=== PATIENT | female | born 1965 | race Caucasian/White ===

== ENCOUNTER → 2017-03-16 | Day surgery (SDC) | payer BC ==
[2017-03-02 11:05] VITALS: Ht 165.1 cm; Wt 77.3 kg
[~2017-03-16] VITALS: Ht 165.1 cm; Wt 77.3 kg
[~2017-03-16] MED LIST: CYCL10TA6 PO; ESCI1TAB10 PO; LEVO125T5 PO; LIDOCAINE HCL 2% 2 ML VIAL (20MG/ML) ONE; LOSA1TAB38 PO; MEDR10TA PO; PRLSR20 PO; PROPOFOL IV EMULSION 10 MG/ML 20 ML VIAL IV ONE
--- NOTE | 2017-03-16 11:12 | Endo History and Physical ---
History & Physical Date of Service: Mar 16, 2017. Chief Complaint: screening Referring Physician: Dr. Rober Esparza History of Present Illness 51 yo CF who presents for screening colonoscopy. Past Surgical History Hx Cardiac Surgery: No Hx Internal Defibrillator: No Hx Pacemaker: No Hx Abdominal Surgery: Yes (TUBAL LIGATION, D&C X 2) Hx of Implantable Prosthesis: No Hx Post-Op Nausea and Vomiting: No Hx Cancer Surgery: No Hx Thoracic Surgery: No Hx Orthopedic: No Hx Urinary Tract Surgery: No Family History None Social History Smoking Status: Former Smoker Hx Substance Use: No Hx Alcohol Use: Yes (OCCASIONALLY) Allergies Coded Allergies: Penicillins (Verified Allergy, Mild, RASH, 03/16/17) Latex (Verified Allergy, Unknown, SKIN IRRITATION AND ITCHING, 03/02/17) Current Medications Reported Home Medications Medications Dose Route/Sig Max Daily Dose Days Date Category Dose Instructions Flexeril (Cyclobenzaprine Hcl) 10 Mg Tab 10 Mg PO TID PRN 03/02/17 Reported Provera (Medroxyprogesterone Acetate) 10 Mg Tab 10 Mg PO UD 03/02/17 Reported TAKES 1 TAB DAYS 16-28 PRN Prilosec (Omeprazole) 20 Mg Capcr 20 Mg PO QAM 03/02/17 Reported Lexapro (Escitalopram Oxalate) 20 Mg Tab 20 Mg PO QAM 03/02/17 Reported Cozaar (Losartan Potassium) 100 Mg Tab 100 Mg PO QAM 03/02/17 Reported Levothyroxine Sodium 125 Mcg Tab 1 Tab PO QAM 90 03/02/17 Reported Vital Signs Weight (Kilograms): 77.27 Height (Feet): 5 Height (Inches): 5 Date Time Temp Pulse Resp B/P (MAP) Pulse Ox O2 Delivery O2 Flow Rate FiO2 03/16/17 10:19 36.8 86 20 152/112 (125) 95 Room Air Physical Exam General Appearance: WD/WN, no apparent distress Respiratory/Chest: Auscultation: breath sounds normal Cardiovascular: Heart Auscultation: RRR Abdomen: Bowel Sounds: normal Inspection & Palpation: soft, non-distended, no tenderness, guarding & rebound Assessment and Plan Assessment: 51 yo CF who presents for screening colonoscopy. Plan: Proceed with colonoscopy.
--- NOTE | 2017-03-16 11:33 | Discharge Instructions ---
Endoscopy Patient Instructions Date / Procedure(s) Performed Mar 16, 2017. Colonoscopy Allergy Information Coded Allergies: Penicillins (Verified Allergy, Mild, RASH, 03/16/17) Latex (Verified Allergy, Unknown, SKIN IRRITATION AND ITCHING, 03/02/17) Discharge Date / Findings Mar 16, 2017. Internal hemorrhoids Medication Instructions OK to resume all medications today as prescribed Medications Dose Route/Sig Max Daily Dose Days Date Category Dose Instructions Flexeril (Cyclobenzaprine Hcl) 10 Mg Tab 10 Mg PO TID PRN 03/02/17 Reported Provera (Medroxyprogesterone Acetate) 10 Mg Tab 10 Mg PO UD 03/02/17 Reported TAKES 1 TAB DAYS 16-28 PRN Prilosec (Omeprazole) 20 Mg Capcr 20 Mg PO QAM 03/02/17 Reported Lexapro (Escitalopram Oxalate) 20 Mg Tab 20 Mg PO QAM 03/02/17 Reported Cozaar (Losartan Potassium) 100 Mg Tab 100 Mg PO QAM 03/02/17 Reported Levothyroxine Sodium 125 Mcg Tab 1 Tab PO QAM 90 03/02/17 Reported Provider Instructions Activity Restrictions - No exercising or heavy lifting for 24 hours. - Do not drink alcohol the day of the procedure. - Do not drive a car or operate machinery until the day after the procedure. - Do not make any important decisions or sign important papers in 24 hours after the procedure. Following Day: - Return to full activity which may include returning to work/school. Diet Start your diet with liquids and light foods (jello, soup, juice, toast). Then eat your usual diet if not nauseated. Treatment For Common After Affects For mild abdominal pain, bloating, or excessive gas: - Rest - Eat lightly - Lie on right side Follow-Up Information Follow-up with Dr. Rober Esparza as scheduled Anesthesia Information What You Should Know You have had a procedure that required some medicine to reduce anxiety and discomfort. This treatment is called moderate sedation. After receiving the treatment, you may be sleepy, but you will be able to breathe on your own. The effects of the treatment may last for several hours. Follow these instructions along with Activity/Diet recommendations noted above: * Do NOT do anything where dizziness or clumsiness would be dangerous. * Rest quietly at home today, then you can be up and about tomorrow. * Have a responsible person stay with you the rest of today. * You may have had an I.V. today. If so, you may take the dressing off later today. Recommendations Call your doctor if: * Trouble breathing * Continuous vomiting for more than 24 hours * Temperature above 101 degrees * Severe abdominal pain or bloating * Pain not relieved by pain medicine ordered * There is increased drainage or redness from any incision * A large amount of rectal bleeding greater than 2-3 tablespoons. (If you had a polyp/s removed or have hemorrhoids, a small amount of blood - from the rectum is to be expected.) * You have any unanswered questions or concerns. IN THE EVENT OF A SERIOUS EMERGENCY, GO TO THE NEAREST EMERGENCY ROOM Your discharge instructions were prepared by provider Abram Vásquez. Patient Instructions Signature Page Ev Mckeon Patient (or Guardian) Signature/Date: I have read and understand the instructions given to me by my caregivers. Caregiver/RN/Doctor Signature/Date: The above-named patient and/or guardian has received patient instructions on this date. + Original Patient Signature Page (only) stays with chart. Please make copy for patient.
--- NOTE | 2017-03-16 11:35 | GI REPORT ---
Procedure Date: 03/16/2017 11:09 AM THIS REPORT HAS BEEN AMENDED Addendum Number: 1 Addendum Date: 03/16/2017 12:05:09 PM No specimens were obtained during this procedure, and therefore, no pathology is pending. Repeat colonoscopy in 10 years Procedure: Colonoscopy Indications: Screening for colorectal malignant neoplasm Medicines: Monitored Anesthesia Care Complications: No immediate complications. Estimated Blood Loss: Estimated blood loss: none. Procedure: Pre-Anesthesia Assessment: - Prior to the procedure, a History and Physical was performed, and patient medications and allergies were reviewed. The patient's tolerance of previous anesthesia was also reviewed. The risks and benefits of the procedure and the sedation options and risks were discussed with the patient. All questions were answered, and informed consent was obtained. Prior Anticoagulants: The patient has taken no previous anticoagulant or antiplatelet agents. ASA Grade Assessment: II - A patient with mild systemic disease. After reviewing the risks and benefits, the patient was deemed in satisfactory condition to undergo the procedure. After I obtained informed consent, the scope was passed under direct vision. Throughout the procedure, the patient's blood pressure, pulse, and oxygen saturations were monitored continuously. The scope was introduced through the anus and advanced to the terminal ileum. The colonoscopy was performed without difficulty. The patient tolerated the procedure well. The quality of the bowel preparation was good. The terminal ileum, ileocecal valve, appendiceal orifice, and rectum were photographed. Findings: Non-bleeding internal hemorrhoids were found during retroflexion. The hemorrhoids were small. Impression: - Non-bleeding internal hemorrhoids. - No specimens collected. Recommendation: - Resume previous diet. - Continue present medications. - Repeat colonoscopy for surveillance based on pathology results. - Return to primary care physician as previously scheduled. Abram GemMabel Fahad, 03/16/2017 11:35:27 AM This report has been signed electronically. Note Initiated On: 03/16/2017 11:09 AM I attest to the content of the Intraoperative Record and orders documented therein, exceptions below Abram Dsouza Fahad, DO 03/16/2017 12:05:39 PM This report has been signed electronically.
[2017-03-16 12:06] VITALS: BP 150/105; PULSE 79; O2SAT 97
--- NOTE | 2017-03-16 13:30 | Anesthesiology Progress Note ---
Anesthesia Post Op Note Date & Time Mar 16, 2017 at 13:30 Vital Signs Pain Intensity: 0 Vital Signs Past 12 Hours Date Time Temp Pulse Resp B/P (MAP) Pulse Ox O2 Delivery O2 Flow Rate FiO2 03/16/17 12:06 79 20 150/105 (120) 97 Room Air 03/16/17 11:51 73 20 143/93 (110) 96 Room Air 03/16/17 11:36 73 20 111/71 (84) 96 Room Air 03/16/17 10:19 36.8 86 20 152/112 (125) 95 Room Air Notes Mental Status: alert / awake / arousable, participated in evaluation Pt Amnestic to Procedure: Yes Nausea / Vomiting: adequately controlled Pain: adequately controlled Airway Patency, RR, SpO2: stable & adequate BP & HR: stable & adequate Hydration State: stable & adequate Anesthetic Complications: no major complications apparent
== END | disposition home or self-care (01) ==
LOC: C.GI 09:52
PROVIDERS: ATTEND Internal Medicine
DX: Z12.11 Encounter for screening for malignant neoplasm of colon (principal); K64.8 Other hemorrhoids; Z87.891 Personal history of nicotine dependence; Z79.899 Other long term (current) drug therapy

== ENCOUNTER → 2017-07-11 | Outpatient (CLI) | payer BC ==
[~2017-07-11] MED LIST changes: +LEVO125T4 PO; -LEVO125T5 PO; -LIDOCAINE HCL 2% 2 ML VIAL (20MG/ML) ONE; -PROPOFOL IV EMULSION 10 MG/ML 20 ML VIAL IV ONE
[2017-07-11 12:11] LABS: URINE APPEARANCE CLEAR (CLEAR); URINE BILIRUBIN NEG (NEG); URINE COLOR ORANGE; URINE EPITHELIAL CELL AUTO >30 /lpf (0-5); URINE NITRITE NEG (NEG); URINE PH 5.5 (4.5-7.5); URINE SPECIFIC GRAVITY 1.021 (1.000-1.030); UROBILINOGEN NEG (NEG); ZZUR CULT IF INDIC CLEAN CATCH NO
[2017-07-11 12:13] LABS: MANUAL MICROSCOPIC REQUIRED? NO; REVIEW REQ? NO
[2017-07-11 12:21] LABS: ESTIMATED AVERAGE GLUCOSE 123 mg/dl; HA1C FLAG Normal (Normal)
[2017-07-11 12:25] LABS: ALT/SGPT 35 U/L (12-78); BLOOD UREA NITROGEN 12 mg/dl (7-18); BUN/CREATININE RATIO 12.5 (10-20); CALCIUM 8.5 mg/dl (8.5-10.1); CARBON DIOXIDE 25 mmol/L (21-32); CHLORIDE 107 mmol/L (98-107); CHOLESTEROL 187 mg/dl (0-200); GLUCOSE 94 mg/dl (70-99); POTASSIUM 4.2 mmol/L (3.5-5.1); SODIUM 139 mmol/L (136-145)
[2017-07-11 12:26] LABS: BASO % 0.6 %; BASO ABS # 0.04 K/uL (0-0.2); COMPLETE YES; EOS % 4.4 %; IG% 0.1 %; LYMPH % 28.7 %; LYMPH ABS # 2.03 K/uL (1.2-3.4); MEAN CELL VOLUME 82.9 fL (80-100); MEAN CORPUSCULAR HEMOGLOBIN 27.1 pg (25-34); MEAN CORPUSCULAR HGB CONC 32.7 g/dl (32-36); MEAN PLATELET VOLUME 10.7 fL (7.4-10.4); MONO % 7.5 %; NEUT % 58.7 %; PLATELET COUNT 307 K/uL (130-400); RED BLOOD COUNT 5.31 M/uL (4.2-5.4); WHITE BLOOD COUNT 7.07 K/uL (4.8-10.8)
[2017-07-11 12:36] LABS: ALKALINE PHOSPHATASE 106 U/L (45-117); AST/SGOT 27 U/L (15-37); CHOLESTEROL/HDL RATIO 5.5; HDL CHOLESTEROL 34 mg/dl; LDL CHOLESTEROL CALCULATED 88 mg/dl; TRIGLYCERIDES 324 mg/dl (0-150); VERY LOW DENSITY LIPOPROT CALC 65 mg/dl
== END | disposition home or self-care (01) ==
LOC: C.LABBFT 07:22
PROVIDERS: ATTEND Internal Medicine
DX: E03.9 Hypothyroidism, unspecified (principal); E78.5 Hyperlipidemia, unspecified; R73.03 Prediabetes; F32.9 Major depressive disorder, single episode, unspecified